=== PATIENT | male | born 1945 | race Caucasian/White ===

== ENCOUNTER 2017-05-30 17:07 | Emergency (ER) | payer MEDICARE, OTHER ==
[2017-05-30] MEDS ORDERED: SODIUM CHLORIDE 0.9% 500 ML IV STA (17:51)
[2017-05-30] MEDS ORDERED: SODIUM CHLORIDE 0.9% 1,000 ML IV STA (17:51)
[2017-05-30] MEDS ORDERED: HYDROmorphone 1 MG/ML 1 ML SYRINGE IVP STA (17:53)
[2017-05-30 18:30] LABS: Basophils # (A) 0.1 k/uL (0-0.2); Basophils % (A) 1 %; CH 31.5; CHCM 34.7; Eosinophils # (A) 0.2 k/uL (0-0.7); Eosinophils % (A) 2 %; HCT 40.3 % (39.0-53.0); HGB 14.2 gm/dL (13.0-17.5); Luc # (Auto) 0.14; Luc % (Auto) 2; Lymphocytes # (A) 1.7 k/uL (1.0-4.8); Lymphocytes % (A) 19 %; MCHC 35.1 g/dL (31.0-37.0); Monocytes # (A) 0.6 k/uL (0-1.0); Monocytes % (A) 7 %; Neutrophils # (A) 6.4 k/uL (1.3-7.7); Neutrophils % (A) 70 %; RBC 4.42 m/uL (4.30-5.90); WBC 9.1 k/uL (3.8-10.6); WBC (Perox) 9.07
[2017-05-30 18:44] LABS: ALT 24 U/L (21-72); AST 19 U/L (17-59); Alkaline Phosphatase 69 U/L (38-126); Anion Gap 10 mmol/L; Blood Urea Nitrogen 13 mg/dL (9-20); Calcium 9.7 mg/dL (8.4-10.2); Carbon Dioxide 23 mmol/L (22-30); Chloride 106 mmol/L (98-107); Glucose 108 mg/dL (74-99); Non-African American GFR(MDRD) >60 (>60 ml/min/1.73 sqM); Potassium 3.8 mmol/L (3.5-5.1); Sodium 139 mmol/L (137-145); Total Bilirubin 0.7 mg/dL (0.2-1.3); Total Protein 7.1 g/dL (6.3-8.2)
[2017-05-30 18:50] LABS: INR 1.1 (<1.1); Partial Thromboplastin Time 23.9 sec (22.0-30.0); Prothrombin Time 10.9 sec (9.0-12.0)
--- NOTE | 2017-05-30 19:00 | XR ---
EXAMINATION TYPE: XR pelvis AP view DATE OF EXAM: 05/30/2017 COMPARISON: NONE HISTORY: Pain TECHNIQUE: Single view FINDINGS: Pelvic ring is intact. There is mild sclerosis at the sacroiliac joints. Proximal femurs ar e intact. Hip joint spaces are fairly normal. IMPRESSION: No acute abnormality of the pelvis.
--- NOTE | 2017-05-30 19:01 | XR ---
EXAMINATION TYPE: XR femur RT DATE OF EXAM: 05/30/2017 COMPARISON: NONE HISTORY: Pain TECHNIQUE: 4 views FINDINGS: There is narrowing of the medial joint space of the knee. Hip joint space is normal. I see no fracture. There is no sign of knee joint effusion. IMPRESSION: No fracture. Osteoarthritis in the knee joint.
[2017-05-30 19:17] LABS: Appearance,Urine Clear (Clear); Bilirubin,Urine Negative (Negative); Glucose,Urine (UA) Negative (Negative); Ketones,Urine Negative (Negative); Leukocyte Esterase,Urine Negative (Negative); Nitrite,Urine Negative (Negative); PH, Urine 6.5 (5.0-8.0); Protein,Urine Negative (Negative); Specific Gravity,Urine 1.009 (1.001-1.035); UA Billing (MACRO vs. MICRO) CHEM; Urobilinogen,Urine <2.0 mg/dL (<2.0)
--- NOTE | 2017-05-30 19:20 | ED ---
General Adult HPI - General Chief complaint: Syncope Stated complaint: Rt leg pain/sent by [employer] [employer] [facility] Time Seen by Provider: 05/30/17 17:43 Source: patient Mode of arrival: ambulatory Limitations: no limitations - History of Present Illness Initial comments: This 71-year-old white male presents complaining of right leg pain. 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 It gave way and then he felt a pop in the right posterior proximal leg. He states that it was excruciating pain. He apparently might have had a syncopal episode. He states that he did not go completely out and could hear everything that people were saying. This occurred during a significant pain episode. It was short-lived. He denies any other complaints or modifying factors. There is no chest pain or shortness of breath. No previous similar incidents. He states that he still does have pain in his right leg with certain movements. It is not significant when lying on the cart currently. No other modifying factors. - Related Data Home Medications Medication Instructions Recorded Confirmed Atorvastatin Calcium [Lipitor] 80 mg PO HS 05/30/17 05/30/17 Meloxicam [Mobic] 15 mg PO DAILY PRN 05/30/17 05/30/17 Metoprolol Succinate (ER) [Toprol 25 mg PO HS 05/30/17 05/30/17 Xl] Sheldon-3 Fatty Acids/Fish Oil [Fish 2 cap PO HS 05/30/17 05/30/17 Oil 1,000 mg Softgel] amLODIPine [Norvasc] 5 mg PO HS 05/30/17 05/30/17 diphenhydrAMINE HCL [Benadryl] 50 mg PO BID 05/30/17 05/30/17 Allergies Allergy/AdvReac Type Severity Reaction Status Date / Time Sulfa (Sulfonamide Allergy Swelling/Hi Verified 05/30/17 18:42 Antibiotics) ves Review of Systems ROS Statement: Those systems with pertinent positive or pertinent negative responses have been documented in the HPI. ROS Other: All systems not noted in ROS Statement are negative. Past Medical History Past Medical History: Hyperlipidemia, Hypertension History of Any Multi-Drug Resistant Organisms: None Reported Past Surgical History: Heart Catheterization With Stent Past Psychological History: No Psychological Hx Reported Smoking Status: Never smoker Past Alcohol Use History: Occasional Past Drug Use History: None Reported General Exam - General Exam Comments Initial Comments: GENERAL: The patient is well nourished and well hydrated. VITAL SIGNS: Heart rate, blood pressure, respiratory rate reviewed as recorded in nurse's notes. EYES: Pupils are round and reactive. Extraocular movements are intact. No conjunctival / lid redness or swelling. ENT: No external evidence of injury, swelling, or ecchymosis. Airway is patent. Throat is clear. NECK: Nontender. No swelling or evidence of injury. No subcutaneous emphysema. Trachea is midline. No thyroid mass. HEART: Regular rate and rhythm. Good peripheral pulses. LUNGS/CHEST: Breath sounds clear and equal bilaterally. No rales, rhonchi, or wheezes. No ecchymosis, subcutaneous emphysema, or tenderness. ABDOMEN: Abdomen soft without tenderness. No palpable masses or organomegaly. No peritoneal signs. No abdominal wall swelling or ecchymosis. EXTREMITIES: There is tenderness noted to the right proximal posterior leg. There is no ecchymosis identified. There is no significant swelling. The pain is much worse with flexion of his hip in extension of his leg. No thoracolumbar tenderness. NEUROLOGIC: Sensation is grossly intact. Cranial nerve exam reveals face is symmetrical, tongue is midline, speech is clear. SKIN: No abrasions or ecchymosis is noted. No induration or masses noted. PSYCHIATRIC: Alert and oriented. Appropriate behavior and judgment. Limitations: no limitations Course Vital Signs 05/30/17 17:13 Temperature 98.5 F Pulse Rate 93 Respiratory 20 Rate Blood Pressure 145/80 O2 Sat by Pulse 93 L Oximetry Medical Decision Making - Medical Decision Making The patient was seen and examined. All diagnostics were reviewed. The EKG shows a normal sinus rhythm at a rate of 78. There is no acute ST-T wave changes identified. The DE interval is 170, QRS duration is 102, and the QTc interval is 444. Or he was all essentially within normal limits. An x-ray of the right femur and AP pelvis was done and does not show any acute process. Overall, it is felt as though he did obtain a strain or tear to his right posterior leg muscles. It is felt as though he had a significant painful incident and likely vasovagal response. He has appeared quite stable while in the emergency department. He did receive pain medications as well as some IV fluids and is in no distress on recheck. It is felt as though he is stable for discharge. Is counseled regarding his conditions in detail and leaves in no distress. - Lab Data Result diagrams: 05/30/17 18:20 05/30/17 18:20 Lab Results 05/30/17 05/30/17 05/30/17 Range/Units 18:20 18:20 18:20 WBC 9.1 (3.8-10.6) k/uL RBC 4.42 (4.30-5.90) m/uL Hgb 14.2 (13.0-17.5) gm/dL Hct 40.3 (39.0-53.0) % MCV 91.0 (80.0-100.0) fL MCH 32.0 (25.0-35.0) pg MCHC 35.1 (31.0-37.0) g/dL RDW 14.0 (11.5-15.5) % Plt Count 231 (150-450) k/uL Neutrophils % 70 % Lymphocytes % 19 % Monocytes % 7 % Eosinophils % 2 % Basophils % 1 % Neutrophils # 6.4 (1.3-7.7) k/uL Lymphocytes # 1.7 (1.0-4.8) k/uL Monocytes # 0.6 (0-1.0) k/uL Eosinophils # 0.2 (0-0.7) k/uL Basophils # 0.1 (0-0.2) k/uL PT 10.9 (9.0-12.0) sec INR 1.1 (<1.1) APTT 23.9 (22.0-30.0) sec Sodium 139 (137-145) mmol/L Potassium 3.8 (3.5-5.1) mmol/L Chloride 106 (98-107) mmol/L Carbon Dioxide 23 (22-30) mmol/L Anion Gap 10 mmol/L BUN 13 (9-20) mg/dL Creatinine 0.83 (0.66-1.25) mg/dL Est GFR (MDRD) Af Amer >60 (>60 ml/min/1.73 sqM) Est GFR (MDRD) Non-Af >60 (>60 ml/min/1.73 sqM) Glucose 108 H (74-99) mg/dL Calcium 9.7 (8.4-10.2) mg/dL Total Bilirubin 0.7 (0.2-1.3) mg/dL AST 19 (17-59) U/L ALT 24 (21-72) U/L Alkaline Phosphatase 69 (38-126) U/L Total Protein 7.1 (6.3-8.2) g/dL Albumin 4.0 (3.5-5.0) g/dL Disposition Clinical Impression: Vasovagal syncope, Right hamstring muscle strain Disposition: HOME SELF-CARE Condition: Good Instructions: Muscle Strain (ED), Syncope (ED) Additional Instructions: Please use Motrin, Tylenol, or Aleve as needed for pain. Referrals: Reji Kamara MD [Primary Care Provider] - 06/03/17 Time of Disposition: 19:19
[2017-05-30 19:25] VITALS: BP 148/75; PULSE 65; RESP 18; TEMP 97.7
== END 2017-05-30 19:24 | disposition home or self-care (01) ==
LOC: EC 17:07
DX: S76.311A Strain of muscle, fascia and tendon of the posterior muscle group at thigh level, right thigh, initial encounter (principal); R55 Syncope and collapse; I10 Essential (primary) hypertension; E78.5 Hyperlipidemia, unspecified; Z88.2 Allergy status to sulfonamides; Z79.899 Other long term (current) drug therapy; X50.0XXA Overexertion from strenuous movement or load, initial encounter; Y93.89 Activity, other specified
CPT/HCPCS: 99284; 96374; 96361; 36415; 93005; 80053; 85025; 85610; 85730; 81003; 72170; 73552; J1170